=== PATIENT | male | born 1990 | race Caucasian/White ===

== ENCOUNTER 2017-06-02 12:23 | Emergency (ER) | payer BC, OTHER ==
[2017-06-02] MEDS ORDERED: Mupirocin 2% Ointment 22 GM Tube ONE (14:55)
[2017-06-02 15:03] LABS: #Eosinphils 0.1 thou/uL (0.0-0.7); #Lymphocytes 1.7 thou/uL (1.20-3.40); #Monocytes 0.4 thou/uL (0.11-0.59); #Neutrophils 4.2 thou/uL (1.40-6.50); %Basophils 0.8 % (0.0-1.0); %Eosinophils 1.2 % (0.0-10.0); %Lymphocytes 25.8 % (21.0-51.0); %Monocytes 6.9 % (0.0-10.0); %Neutrophils 65.4 % (42.0-75.0); Anisocytosis SLIGHT = 6-15 cells (100X) (0-5/hpf); Basophilic Stippling SLIGHT = 1-2 cells (100X) (None Seen); Giant Platelets SLIGHT; Hemoglobin 10.4 g/dL (14.0-18.0); Hypochromia SLIGHT = 6-15 cells (100X) (0-5/hpf); Large Platelets SLIGHT; MDiff Complete? YES; Mean Corpuscular HGB CONC 30.4 g/dL (32.0-36.0); Mean Corpuscular Hemoglobin 21.5 pg (27.0-31.0); Mean Corpuscular Volume 70.7 fl (80.0-94.0); Mean Platelet Volume 8.8 fL (7.4-10.4); Microcytosis SLIGHT = 6-15 cells (100X) (0-5/hpf); PLT Morphology Comment Appears Adequate; Platelet Count 222 thou/uL (130-400); Red Blood Cell (RBC) Count 4.85 mill/uL (4.70-6.10); White Blood Cell (WBC) Count 6.4 thou/uL (4.8-10.8)
[2017-06-02 15:09] LABS: ALT (SGPT) 17 U/L (8-55); AST (SGOT) 18 U/L (5-34); Albumin 3.5 g/dL (3.5-5.0); Alkaline Phosphatase 97 U/L (40-150); Anion Gap 14 mmol/L (10-20); BUN (Urea Nitrogen) 8 mg/dL (8.9-20.6); Bilirubin, Total 0.2 mg/dL (0.2-1.2); Calc. Creatinine Clearance 0 mL/min (70-130); Calcium 8.5 mg/dL (7.8-10.44); Carbon Dioxide 25 mmol/L (22-29); Chloride 106 mmol/L (98-107); Estimated GFR-MDRD Greater than 90; Globulin 3.4 g/dL (2.4-3.5); Glucose 100 mg/dL (70-105); Potassium 3.8 mmol/L (3.5-5.1); Protein, Total 6.9 g/dL (6.0-8.3); Sodium 141 mmol/L (136-145)
[2017-06-02 16:32] LABS: HIV (1/2) Antibody/Antigen Non-Reactive (NonReactive); HIV 1/2 INDEX 0.19 S/CO (<1.00)
[2017-06-07 15:14] LABS: Hep B Surface AG-Rflx Sendout Negative (Negative); Hepatitis B Core IgM AB Negative (Negative); Hepatitis B Core Total Negative (Negative); Hepatitis B Surface AB-Sendout Reactive (.)
== END 2017-06-02 15:15 | disposition home or self-care (01) ==
LOC: SCSER 12:23
DX: L30.9 Dermatitis, unspecified (principal); Z77.21 Contact with and (suspected) exposure to potentially hazardous body fluids
CPT/HCPCS: 36415; 80053; 85025; 86704; 86705; 86706; 86707; 87340; 87350; 87389; 99283